=== PATIENT | female | born 1960 | race Hispanic/Latino ===

== ENCOUNTER 2019-05-29 14:43 | Outpatient (CLI) | payer BC, OTHER | END 2019-05-29 14:44 | disposition home or self-care (01) | LOC: LABHHL 14:43 | PROVIDERS: ATTEND Surgery | DX: N60.92 Unspecified benign mammary dysplasia of left breast (principal) | CPT/HCPCS: 88305; 88341; 88342 ==

== ENCOUNTER 2019-08-12 06:59 | Day surgery (SDC) | payer BC ==
[~2019-08-12 06:59] MED LIST: BACITRACIN ZINC OINT 28.4 GM TP ONE; WATER FOR IRRIG STERILE 1,500 ML BOTTLE IR ONE; ceFAZolin/Water 2 GM/20 ML 2 GM/20 ML SYRINGE IV NR
[2019-08-12] MEDS ORDERED: METHYLENE BLUE 50 MG/10 ML AMP ONE (07:44)
[2019-08-12] MEDS ORDERED: SODIUM CHLORIDE P/F VIAL 10 ML 10 ML ONE (07:44)
[2019-08-12] MEDS ORDERED: LIDOCAINE (1%) 10 MG/1 ML VIAL 20 ML MDV ONE ×2 (08:26→12:17)
[2019-08-12] MEDS ORDERED: LIDOCAINE (1%) 10 MG/1 ML VIAL 20 ML MDV INFILTRATI ONE (08:45)
--- NOTE | 2019-08-12 10:39 | Mammography Report ---
NEEDLE LOCALIZATION AND HOOKWIRE PLACEMENT LEFT BREAST INDICATION: LT BREAST CANCER. COMPARISON: 05/29/2019 mammogram and recent MRI from [facility] FINDINGS: The skin was cleansed with chlorhexidine. Using mammographic guidance and sterile technique, 7.5 cm a nd 5.0 cm Bar 2 needles/hookwires were placed from a lateral approach to bracket a known cancer a nd a second more posterior suspicious mass. The second mass correlates with a suspicious MRI finding. Satisfactory positioning of the hookwires was confirmed with orthogonal views. The hookwires were de ployed and the needles were removed. A sterile dressing was applied. The patient experienced a mild vasovagal reaction but otherwise tolerated the procedure well and ther e were no complications. A second to the surgical suite in good condition. IMPRESSION: Uncomplicated placement of 2 hookwires bracketing a known cancer and a second suspicious lesion of the left breast. Signer Name: Hilton Calero MD Signed: 08/12/2019 10:35 AM Workstation Name: [id number]
[2019-08-12] MEDS ORDERED: HYDROmorphone 1 MG/1 ML INJ IV PRN (10:51)
--- NOTE | 2019-08-12 10:55 | Anesthesia Consultation ---
Anesthesia Consult and Med Hx Date of service: 08/12/19 - Airway Anesthetic Teeth Evaluation: Good ROM Head & Neck: Adequate Mental/Hyoid Distance: Adequate Mallampati Class: Class III Intubation Access Assessment: Possibly Difficult - Pulmonary Exam CTA: Yes - Cardiac Exam Cardiac Exam: RRR - Pre-Operative Health Status ASA Pre-Surgery Classification: ASA3 Proposed Anesthetic Plan: General Nerve Block: PEC - Pulmonary Hx Smoking: Yes (quit 30 yrs ago) Hx Respiratory Symptoms: No - Cardiovascular System Hx Hypertension: Yes (took atenolol 12/3 PM) Hx Heart Attack/AMI: No Hx Percutaneous Transluminal Coronary Angioplasty (PTCA): No - Central Nervous System CVA: No Hx Back Pain: Yes (LUMBAR) Hx Psychiatric Problems: Yes (anxiety/depression) - Gastrointestinal Hx Gastroesophageal Reflux Disease: Yes (took protonix 12/3 PM; asymptomatic today) - Endocrine Hx Renal Disease: No Hx Liver Disease: No Hx Insulin Dependent Diabetes: No Hx Non-Insulin Dependent Diabetes: No Hx Thyroid Disease: No - Other Systems Hx Cancer: Yes (breast Ca) Hx Obesity: Yes (BMI 36) - Additional Comments Anesthesia Medical History Comments: Hx PONV with previous anesthetic.
--- NOTE | 2019-08-12 10:55 | Anesthesia Day of Surgery ---
Anesthesia Day of Surgery - Day of Surgery Patient Examined: Yes Patient H&P Reviewed: Yes Patient is NPO: Yes Beta Blockers: Yes (took home dose yesterday PM, will hold AM dose in preop 2/2 bradycardia)
[2019-08-12] MEDS ORDERED: SCOPOLAMINE TRANSDERMAL PATCH 72 HR TD NR (11:00)
[2019-08-12] MEDS ORDERED: MIDAZOLAM 2 MG/2 ML INJ IV NR (11:00)
[2019-08-12] MEDS ORDERED: LACTATED RINGERS 1,000 ML IV SCH (11:00)
[2019-08-12] MEDS ORDERED: GABAPENTIN 300 MG CAP PO NR (11:00)
[2019-08-12] MEDS ORDERED: BUPIVACAINE-EPINEPHRINE/PF 0.25%-1:200,000 (30 ML) VIAL INFILTRATI ONE (11:44)
[2019-08-12] MEDS ORDERED: fentaNYL 100 MCG/2 ML INJ IV SCH (11:51)
[2019-08-12] MEDS ORDERED: ACETAMINOPHEN 500 MG TAB PO ONE (11:52)
[2019-08-12] MEDS ORDERED: BUPIVACAINE/PF (0.25%) 2.5 MG/ML 30 ML VIAL INFILTRATI ONE (12:17)
[2019-08-12] MEDS ORDERED: METOCLOPRAMIDE 10 MG/2 ML INJ ONE (12:24)
[2019-08-12] MEDS ORDERED: fentaNYL 100 MCG/2 ML INJ ONE (12:24)
[2019-08-12] MEDS ORDERED: HYDROmorphone 1 MG/1 ML INJ ONE (12:24)
[2019-08-12] MEDS ORDERED: LIDOCAINE MPF (2%) 20 MG/1 ML VIAL 5 ML ONE (12:24)
[2019-08-12] MEDS ORDERED: ONDANSETRON 4 MG/2 ML INJ ONE (12:24)
[2019-08-12] MEDS ORDERED: ROCURONIUM 50 MG/5 ML INJ IV ONE (12:24)
[2019-08-12] MEDS ORDERED: dexAMETHasone 20 MG/5 ML VIAL ONE (12:24)
[2019-08-12] MEDS ORDERED: MIDAZOLAM 2 MG/2 ML INJ ONE (12:25)
[2019-08-12] MEDS ORDERED: KETOROLAC 30 MG/1 ML INJ ONE (12:25)
[2019-08-12] MEDS ORDERED: GLYCOPYRROLATE 0.4 MG/2 ML INJ ONE (12:25)
[2019-08-12] MEDS ORDERED: PROPOFOL 200 MG/20 ML VIAL IV ONE (12:25)
[2019-08-12] MEDS ORDERED: NEOSTIGMINE 10MG/10 ML INJ MDV ONE (12:25)
[2019-08-12] MEDS ORDERED: LACTATED RINGERS 1,000 ML ONE (12:57)
[2019-08-12] MEDS ORDERED: PHENYLEPHRINE/NS 1,000 MCG/10 ML SYRINGE (OR USE) IV ONE (13:00)
[2019-08-12] MEDS ORDERED: diphenhydrAMINE 50 MG/ML VIAL ONE (13:12)
[2019-08-12] MEDS ORDERED: SODIUM CHLORIDE 0.9% P/F 10 ML VIAL INFILTRATI ONE (13:17)
[2019-08-12] MEDS ORDERED: METHYLENE BLUE 50 MG/10 ML AMP IRRIGATION ONE (13:17)
[2019-08-12] MEDS ORDERED: ePHEDrine SULFATE 50 MG/1 ML INJ ONE (14:33)
[2019-08-12] MEDS ORDERED: WATER FOR IRRIG STERILE 1,500 ML BOTTLE IR ONE (14:58)
[2019-08-12] MEDS ORDERED: BACITRACIN ZINC OINT 28.4 GM TP ONE ×2 (15:13→15:14)
--- NOTE | 2019-08-12 15:44 | Short Stay Summary ---
Short Stay Documentation Date of service: 08/12/19 - History H&P: obtained from office - Allergies and Medications Current Medications: Allergies adhesive Allergy (Verified 08/11/19 10:25) Hives Latex, Natural Rubber Allergy (Verified 08/11/19 10:25) Shortness of Breath Sulfa (Sulfonamide Antibiotics) Allergy (Verified 08/11/19 10:25) Shortness of Breath Home Medications Medication Instructions Recorded Confirmed Last Taken Type Atenolol [Tenormin] 25 mg PO BID 08/11/19 08/11/19 08/11/19 08:00 History Atorvastatin [Lipitor Tab] 80 mg PO QHS 08/11/19 08/11/19 08/11/19 08:00 History Citalopram Hydrobromide 40 mg PO DAILY 08/11/19 08/11/19 08/11/19 08:00 History [Citalopram HBr] Ibuprofen [Motrin] 800 mg PO Q8HR PRN 08/11/19 08/11/19 08/11/19 08:00 History Melatonin [Melatonin 5MG RAPDIS] 5 mg PO QHS PRN 08/11/19 08/11/19 08/11/19 08:00 History Meloxicam [Mobic] 15 mg PO QDAY PRN 08/11/19 08/11/19 08/11/19 08:00 History Pantoprazole [Protonix] 40 mg PO QDAY 08/11/19 08/11/19 08/11/19 08:00 History Tizanidine HCl [Tizanidine 2mg tab] 2 mg PO BID 08/11/19 08/11/19 08/11/19 08:00 History clonazePAM [Klonopin] 1 mg PO DAILY 08/11/19 08/11/19 08/11/19 08:00 History HYDROcodone/APAP 5-325 [[place] 1 each PO Q6HR PRN #12 tablet 08/12/19 Unknown Rx 5/325] Active Medications Fentanyl (Sublimaze) 100 mcg IV ONCE PASTORA Stop: 08/12/19 23:00 Gabapentin (Gabapentin) 300 mg PO PREOP NR Stop: 08/12/19 23:00 Hydromorphone HCl (Dilaudid) 0.5 mg IV Q10MIN PRN PRN Reason: Pain , Severe (7-10) Stop: 08/12/19 23:00 Cefazolin Sodium (Ancef/Sterile Water 2 Gm/20 Ml) 2 gm in 20 mls @ 80 mls/hr IV PREOP NR; Protocol Stop: 08/12/19 16:00 Lactated Ringer's (Lactated Ringers) 1,000 mls @ 100 mls/hr IV DIRECT PASTORA Midazolam HCl (Versed) 2 mg IV PREOP NR Stop: 08/12/19 23:59 Scopolamine (Transderm-Scop) 1 each TD PREOP NR Stop: 08/12/19 23:00 - Brief post op/procedure progress note Date of procedure: 08/12/19 Pre-op diagnosis: Left Breast Cancer Post-op diagnosis: same Procedure: Left Breast Needle Localization Partial Mastectomy, [place] Lymph Node Biopsy Anesthesia: JUNAID Surgeon: BETINA ROSE Baby Formula Worker: WHITLEY GONZALES Estimated blood loss: minimal Pathology: list Specimen disposition: to lab Condition: stable - Disposition Condition at discharge: Stable Disposition: [id number] TO HOME OR SELFCARE Short Stay Discharge Plan Activity: no driving until cleared by PCP Weight Bearing Status: Full Weight Bearing Diet: regular Wound: keep clean and dry, per your surgeon's advice (Can shower after 48 hours; no sitting in standing water - no baths, no pools, no lakes) Follow up with: BETINA ROSE MD [Staff Physician] - 7 Days Prescriptions: HYDROcodone/APAP 5-325 [[place] 5/325] 1 each PO Q6HR PRN #12 tablet PRN Reason: Pain
--- NOTE | 2019-08-12 15:46 | Operative Report ---
Operative Report Operative Report: Operative Report: August 12, 2019 Preoperative diagnosis: Left breast cancer of the upper outer quadrant Postoperative diagnosis: Same Procedure: Left needle localization partial mastectomy of the upper outer quadrant and SLNB Surgeon: Lakshmi Back MD Acoustical Tile Drill Press Operator: Colette Resendez MD Anesthesia: General Findings: Left wires and clip present within radiograph specimen; x2 SLN Complications: None EBL: Less than 50 ml Disposition: PACU in good condition Indications for operative procedure: This is a 59 year old lady with newly diagnosed left breast cancer of the upper outer quadrant, IDCA Stage I [id number] ER positive. Recommendations are to proceed with breast conservation with bracketing of area of known cancer and asymmetry on mammogram correlating to breast MRI. Radiology bracketed areas of cancer. She understands the role of adjuvant radiation therapy and Oncotype DX will be obtained by medical oncology. She wished to proceed with the above procedure. Procedure in detail: The patient was taken to radiology for wire placement for localization known area of cancer. Anesthesia placed left pectoral block. Patient was then taken to the operating room. Gen. anesthesia was administered. The left nipple was injected with radioisotope and 1 cc of methylene blue dye. Left breast and axilla were prepped and draped in the normal sterile operative fashion. The wires were identified. Timeout was performed. Gamma probe was inserted into the axilla. The area of hot spot was identified. A left axillary incision was made with a 15 blade knife with dissection taken down to the subcutaneous tissues. The axillary fascia was opened with the Bovie cautery. [address] were identified. No additional remaining counts were present. Lymph node was sent to pathology for permanent processing. Hemostasis was obtained in the left axillary cavity. Axillary cavity was appropriately irrigated and suctioned. Hemostasis was noted. Axillary fascia was approximated and closed using interrupted 3-0 Vicryl and the skin brought together and closed using a running 4-0 Monocryl followed by skin affix. Attention was then taken towards the left breast. Ultrasound was used to mallory the area of incison with findings of known left breast cancer around the 1:00 position 5 cm from the nipple, additional area of concern more lateral and posterior. A lateral breast incision was made with a 15 blade knife and dissection taken down to subcutaneous tissues. First began raising of the lateral flap with removal of the wires from the skin with dissection take down to the pectoralis muscle, followed by raising of the superior flap, medial flap and inferior flap with all flaps taken down to the pectoralis muscle. The breast area of concern was appropriately removed posteriorly from the pectoralis muscle with the aid of the Bovie cautery. The wires were not encountered. Specimen was marked and then sent to pathology and radiology; radiograph specimen with wires and clip present. Breast cavity was irrigated and hemostasis was obtained. The posterior deep breast tissues were approximated and closed using interrupted 3-0 Vicryl. The subcutaneous tissues were approximated and closed using interrupted 3-0 Vicryl followed by closing of the skin with a running 4-0 Monocryl and skin affix. The patient tolerated surgery very well and she was awaken from anesthesia without any complication and transported to PACU in good condition.
--- NOTE | 2019-08-12 15:48 | Mammography Report ---
SPECIMEN RADIOGRAPH LEFT BREAST INDICATION: POST EXC BX. . Left breast cancer. COMPARISON: 05/29/2019 mammogram FINDINGS: 2 hook wires and a single localizer clip are identified within the specimen. IMPRESSION: Excision of the targeted lesions. Signer Name: Hilton Calero MD Signed: 08/12/2019 3:44 PM Workstation Name: [id number]
[2019-08-12 17:51] VITALS: BP 112/75
--- NOTE | 2019-08-12 20:03 | Post Anesthesia Evaluation ---
- Post Anesthesia Evaluation Patient Participated: Yes Airway Patent: Yes Stable Respiratory Function: Yes Nausea/Vomiting: No Temp > 96.8F: Yes Pain Manageable: Yes Adequeate Hydration: Yes Anesthesia Complications: No
== END 2019-08-12 07:00 | disposition home or self-care (01) ==
LOC: OR 06:59
PROVIDERS: ATTEND Surgery
DX: C50.412 Malignant neoplasm of upper-outer quadrant of left female breast (principal); E78.00 Pure hypercholesterolemia, unspecified; I10 Essential (primary) hypertension; K21.9 Gastro-esophageal reflux disease without esophagitis; E66.9 Obesity, unspecified; F32.9 Major depressive disorder, single episode, unspecified; M19.90 Unspecified osteoarthritis, unspecified site; F41.9 Anxiety disorder, unspecified; Z72.89 Other problems related to lifestyle; Z80.0 Family history of malignant neoplasm of digestive organs; Z91.040 Latex allergy status; Z88.2 Allergy status to sulfonamides; Z79.899 Other long term (current) drug therapy; Z87.891 Personal history of nicotine dependence; Z98.890 Other specified postprocedural states; Z68.36 Body mass index [BMI] 36.0-36.9, adult; Z98.891 History of uterine scar from previous surgery; Z87.442 Personal history of urinary calculi; Z80.8 Family history of malignant neoplasm of other organs or systems; Z88.8 Allergy status to other drugs, medicaments and biological substances
CPT/HCPCS: 19281; 19301; 38525; 38792; 76098; 78800; 88307; 88342; A9541; J0690; J1100; J1170; J1200; J1885; J2250; J2370; J2405; J2704; J2710; J2765; J3010; J7120; Q9968; 88333

== ENCOUNTER 2019-08-28 15:12 | Outpatient (CLI) | payer BC | END 2019-08-28 15:13 | disposition home or self-care (01) | LOC: LABHHL 15:12 | PROVIDERS: ATTEND Surgery | DX: T88.8XXA Other specified complications of surgical and medical care, not elsewhere classified, initial encounter (principal); Y83.8 Other surgical procedures as the cause of abnormal reaction of the patient, or of later complication, without mention of misadventure at the time of the procedure; Y92.89 Other specified places as the place of occurrence of the external cause | CPT/HCPCS: 87075; 87116 ==